=== PATIENT | female | born 1985 | race Caucasian/White ===

== ENCOUNTER 2017-12-07 09:16 | Emergency (ER) | payer BC ==
[2017-12-07 09:37] VITALS: BP 113/66; PULSE 146; TEMP 101.4; BMI 21.5
--- NOTE | 2017-12-07 10:03 | PDOC ---
History of Present Illness - General Chief Complaint: Pain, Acute Stated Complaint: FEVER, DIARRHEA Time Seen by Provider: 12/07/17 09:53 History Source: Patient Exam Limitations: No Limitations - History of Present Illness Initial Comments: 12/07/17 10:28 32F with no pmh presenting with cough and sore throat since Thursday and n/d/v since Thursday associated with generalized muscle pain. No No chills, headache, flank pain, dysuria, no one else sick at home. Did not receive flu shot 12/07/17 11:21 12/07/17 13:12 Past History - Past Medical History Allergies/Adverse Reactions: Allergies Allergy/AdvReac Type Severity Reaction Status Date / Time No Known Allergies Allergy Verified 12/07/17 09:33 Home Medications: Ambulatory Orders Azithromycin [Zithromax 250mg Tablets -] 250 mg PO DAILY #4 tab 12/07/17 COPD: No Other medical history: DENIES - Suicide/Smoking/Psychosocial Hx Smoking History: Never smoked Review of Systems - Review of Systems Able to Perform ROS?: Yes Is the patient limited Macedonian proficient: No Constitutional: Yes: Chills, Fever, Loss of Appetite Respiratory: Yes: Cough Cardiac (ROS): No: Symptoms Reported ABD/GI: No: Symptoms Reported : No: Symptoms Reported Musculoskeletal: Yes: Muscle Pain Integumentary: No: Symptoms Reported Neurological: No: Symptoms reported All Other Systems: Reviewed and Negative *Physical Exam - Vital Signs Last Vital Signs Temp Pulse Resp BP Pulse Ox 101.4 F H 146 H 19 113/66 97 12/07/17 09:33 12/07/17 09:33 12/07/17 09:33 12/07/17 09:33 12/07/17 09:33 - Physical Exam General Appearance: Yes: Nourished, Appropriately Dressed, Mild Distress HEENT: positive: EOMI, [place], Normal ENT Inspection. negative: Pharyngeal Erythema, Tonsillar Exudate, Tonsillar Erythema Neck: negative: Tender Respiratory/Chest: positive: Chest Tender, Decreased Breath Sounds Cardiovascular: positive: Regular Rhythm, S1, S2, Tachycardia Gastrointestinal/Abdominal: positive: Normal Bowel Sounds, Flat, Soft. negative : Tender Extremity: positive: Normal Capillary Refill, Normal Inspection, Normal Range of Motion. negative: Delayed Capillary Refill Integumentary: positive: Normal Color, Dry, Warm. negative: Diaphoresis Neurologic: positive: Fully Oriented, Alert, Normal Mood/Affect ED Treatment Course - LABORATORY CBC & Chemistry Diagram: 12/07/17 10:35 12/07/17 10:35 Medical Decision Making - Medical Decision Making 12/07/17 11:51 Flu and Strep Negative. CXR pending. 2l of NS and tylenol for fever. CXR pending 12/07/17 13:16 Right middle lobe pneumonia. A 1.5 cm nodular opacity projecting over the left lung base is likely the nipple shadow. Follow-up chest x-ray is recommended after completion of therapy, utilizing nipple markers. Patient started on azithromycin IV and given prescription course for Zpack 4 days 12/07/17 13:33 Follow up with primary doctor tomorrow *DC/Admit/Observation/Transfer Diagnosis at time of Disposition: Pneumonia - Discharge Dispostion Disposition: HOME Admit: No - Prescriptions Prescriptions: Azithromycin [Zithromax 250mg Tablets -] 250 mg PO DAILY #4 tab - Referrals Referrals: Kelin Sanchez [Staff Physician] - - Patient Instructions Printed Discharge Instructions: DI for Pneumonia -- Adult Additional Instructions: Follow up with your primary care provider Dr. Kelin Sanchez tomorrow if possible or the next day. Come back to the Emergency Department for any new, worsening or concerning symptom. Print Language: GERMAN - Post Discharge Activity
[2017-12-07] MEDS ORDERED: ACETAMINOPHEN 1000 MG/100 ML VIAL (NON FORMULARY) IVPB ONE (10:17)
[2017-12-07] MEDS ORDERED: SODIUM CHLORIDE 1,000 ML IV STA ×2 (10:18→11:27)
[2017-12-07] MEDS ORDERED: ACETAMINOPHEN INJECTION 100 ML IVPB ONE (10:23)
[2017-12-07 10:46] LABS: BASO % 0.1 % (0-2.0); HEMATOCRIT 36.5 % (32.4-45.2); LYMPH % 5.6 % (8-40); MCH 28.9 pg (25.7-33.7); MCHC 32.8 g/dl (32.0-36.0); MEAN CELL VOLUME 87.9 fl (80-96); MEAN PLT VOLUME 8.2 fl (7.5-11.1); MONO % 4.5 % (3.8-10.2); NEUT % 89.8 % (42.8-82.8); PLATELET COUNT 171 K/MM3 (134-434); RBC 4.15 M/mm3 (3.60-5.2); RDW 13.6 % (11.6-15.6); WHITE BLOOD COUNT 12.9 K/mm3 (4.0-10.0)
[2017-12-07 11:10] LABS: URINE APPEARANCE SLCLOUDY; URINE BILIRUBIN NEGATIVE (NEGATIVE); URINE BLOOD 2+ (NEGATIVE); URINE COLOR AMBER; URINE GLUCOSE (UA) 1+ (NEGATIVE); URINE KETONE 2+ (NEGATIVE); URINE LEUK ESTERASE NEGATIVE (NEGATIVE); URINE NITRITE NEGATIVE (NEGATIVE); URINE UROBILINOGEN 4.0 E.U/dl mg/dL (0.2-1.0)
[2017-12-07 11:11] LABS: URINE PROTEIN 2+ (NEGATIVE)
[2017-12-07 11:12] LABS: ALBUMIN 3.6 g/dl (3.4-5.0); ANION GAP 9 (8-16); BILIRUBIN,TOTAL 1.1 mg/dL (0.2-1.0); BLOOD UREA NITROGEN 10 mg/dL (7-18); CALCIUM 8.1 mg/dL (8.5-10.1); CHLORIDE 100 mmol/L (98-107); CO2 25 mmol/L (21-32); CREATININE 0.7 mg/dL (0.55-1.02); GLUCOSE,RANDOM 144 mg/dL (74-106); POTASSIUM 3.2 mmol/L (3.5-5.1); SGOT/AST 40 U/L (15-37); SGPT/ALT 70 U/L (12-78); SODIUM 134 mmol/L (136-145); TOT PROT 7.7 g/dl (6.4-8.2)
[2017-12-07 11:14] LABS: ALK PHOS 73 U/L (45-117)
[2017-12-07 11:16] LABS: EPI CELLS RARE /HPF (FEW); URINE BACTERIA RARE /hpf (NONE SEEN); URINE MUCUS MODERATE
[2017-12-07] MEDS ORDERED: POTASSIUM CHLORIDE ORAL LIQUID 20 MEQ/15 ML PO ONE (11:16)
--- NOTE | 2017-12-07 11:45 | PDOC ---
Attending Attestation - Resident Resident Name: AlbinoNaman - ED Attending Attestation I have performed the following: I have examined & evaluated the patient, The case was reviewed & discussed with the resident, I agree w/resident's findings & plan, Exceptions are as noted - HPI HPI: 12/07/17 11:28 32-year-old female with no severe past medical history presents with febrile illness and URI, vomiting/diarrhea and body aches for the last 3 days. No travel , no known sick contacts. - Physicial Exam PE: 12/07/17 11:45 Fever, tachycardia, normal O2 sat 97% on room air Positive nasal congestion, throat is clear Neck is supple Clearing right base course breath sounds, no wheezing or accessory muscle use Abdomen is benign No rash - Medical Decision Making 12/07/17 11:46 Patient seen and evaluated with the resident. I agree with the overall evaluation, assessment, and management with the following summary of visit: 32-year-old female with no severe past medical history presents with viral symptoms, both upper respiratory and GI. No localizing findings on exam to suggest focal infectious process. labs sent strep and influenza are negative check cxr anti-pyretic, iv fluids reassess 12/07/17 13:44 cxr confirms RML pna. Received 2nd L iv fluids in ED, iv abx. good respiratory status, improved VS with HR 100, afebrile and O2 sat normal. Will d/c on oral abx, prompt PMD f/u, strict return precautions.
[2017-12-07] MEDS ORDERED: POTASSIUM CHLORIDE ORAL LIQUID 20 MEQ/15 ML ONE (11:55)
[2017-12-07] MEDS ORDERED: ONDANSETRON 4 MG/2 ML VIAL IVPUSH ONE (12:30)
[2017-12-07] MEDS ORDERED: ONDANSETRON 4 MG/2 ML VIAL ONE (13:00)
[2017-12-07] MEDS ORDERED: CEFTRIAXONE 1 GM in DEXTROSE 5%-WATER - 100 ML IVPB ONE (13:03)
[2017-12-07] MEDS ORDERED: AZITHROMYCIN IVPB 500 MG in DEXTROSE 5%-WATER - 250 ML IVPB ONE (13:04)
[2017-12-07] MEDS ORDERED: AZITHROMYCIN IVPB 250 ML IVPB ONE (13:52)
[2017-12-07] MEDS ORDERED: CEFTRIAXONE 1 GM/50 ML BAG ONE (13:53)
[2017-12-07] MEDS ORDERED: IBUPROFEN 600 MG TABLET (FP) PO ONE (14:01)
[2017-12-07] MEDS ORDERED: IBUPROFEN 800 MG/8 ML IJ IVPB ONE ×2 (14:03→14:05)
[2017-12-07] MEDS ORDERED: ONDANSETRON *ODT* 4 MG TABLET SL ONE (14:03)
[2017-12-07] MEDS ORDERED: ONDANSETRON *ODT* 4 MG TABLET ONE (14:04)
== END 2017-12-07 14:50 | disposition home or self-care (01) ==
LOC: JER 09:16
PROC: 3E03329 Introduction of Other Anti-infective into Peripheral Vein, Percutaneous Approach (ICD-10-PCS; principal; 2017-12-07)
PROC: 3E03329 Introduction of Other Anti-infective into Peripheral Vein, Percutaneous Approach (ICD-10-PCS; 2017-12-07)
PROC: 3E033NZ Introduction of Analgesics, Hypnotics, Sedatives into Peripheral Vein, Percutaneous Approach (ICD-10-PCS; 2017-12-07)
PROC: 3E0333Z Introduction of Anti-inflammatory into Peripheral Vein, Percutaneous Approach (ICD-10-PCS; 2017-12-07)
PROC: 3E033GC Introduction of Other Therapeutic Substance into Peripheral Vein, Percutaneous Approach (ICD-10-PCS; 2017-12-07)
DX: J18.9 Pneumonia, unspecified organism (principal)
CPT/HCPCS: 36415; 71046-TC; 80053; 81003; 81015; 84702; 85025; 87070; 87430; 87804; 99283-25